=== PATIENT | male | born 1990 | race Caucasian/White ===

== ENCOUNTER 2018-07-08 18:17 | Emergency (ER) | payer MEDICAID, OTHER ==
[~2018-07-08] VITALS: Ht 154.9 cm; Wt 81.0 kg
[2018-07-08 18:22] VITALS: Ht 154.9 cm; Wt 81.0 kg
[2018-07-08] MEDS ORDERED: SOD CHLORIDE 0.9% 810 ML IV ONE (22:30)
[2018-07-09] MEDS ORDERED: CHLORPROMAZINE 25 MG TAB PO ONE
[2018-07-09] MEDS ORDERED: CHLO50TA PO (00:07)
[2018-07-09 00:48] VITALS: BP 114/77; PULSE 76; RESP 18
--- NOTE | 2018-07-10 04:12 | ERD ---
ER Documentation Chief Complaint Chief Complaint VOMTING X 3 DAYS; DIARRHEA X 1 DAY; DOWNS, DM, NON-VERBAL HPI Pt is a 28 year old non-verbal M with hx of down syndrome and diabetes types type 2 who presents to the ED with complaints of intractable hiccups x 2 days. Pt was seen at an outside clinic for same complaints where he was noted to have a blood sugar of 313 and subsequently seen here for further evaluation and treatment. Mother states that pt has been having nausea and vomiting for the past 3 days which improved status post a "shot" that was given by his PCP earlier this week. Mother states pt is able to eat and drink at home. Had 3 episodes of loose of stools yesterday, none today. No abdominal pain, fevers, chills, headaches or any other symptoms. Mother is here requesting treatment for his intractable hiccups. ROS All systems reviewed and are negative except as per history of present illness. Medications Home Meds Active Scripts Chlorpromazine Hcl* (Chlorpromazine Hcl*) 50 Mg Tablet, 50 MG PO TID for hiccups, #12 TAB Prov:ALISHA ESPINOZA PA-C 07/09/18 Allergies Allergies: Coded Allergies: No Known Allergy (Unverified , 07/08/18) PMhx/Soc History of Surgery: No Anesthesia Reaction: No Hx Neurological Disorder: No Hx Respiratory Disorders: No Hx Cardiac Disorders: No Hx Psychiatric Problems: No Hx Miscellaneous Medical Probl: Yes (DM,Down's Syndrome) Hx Alcohol Use: No Hx Substance Use: No Hx Tobacco Use: No Smoking Status: Never smoker FmHx Family History: No diabetes Physical Exam Vitals Vital Signs Date Temp Pulse Resp B/P (MAP) Pulse Ox O2 O2 Flow FiO2 Time Delivery Rate 07/09/18 97.9 76 18 114/77 97 Room Air 00:48 (89) 07/08/18 97.2 87 16 120/83 96 18:22 (95) Physical Exam Const: No acute distress Head: Atraumatic Eyes: Normal Conjunctiva. Upslanting palpebral fissures and epicanthal folds ENT: Normal External Ears, Nose and Mouth. Neck: Full range of motion. No meningismus. Resp: Clear to auscultation bilaterally Cardio: Regular rate and rhythm, no murmurs Abd: Soft, non tender, non distended. Normal bowel sounds Skin: No petechiae or rashes Back: No midline or flank tenderness Ext: No cyanosis, or edema Neur: Awake and alert Psych: Normal Mood and Affect Result Diagram: 07/08/18224907/08/182249 Results 24 hrs Laboratory Tests Test 07/08/18 00:19 07/08/18 22:50 Urine Color STRAW Urine Clarity CLEAR Urine pH 6.0 Urine Specific Reading 1.001 Urine Ketones 1+ mg/dL Urine Nitrite NEGATIVE mg/dL Urine Bilirubin NEGATIVE mg/dL Urine Urobilinogen NEGATIVE mg/dL Urine Leukocyte Esterase NEGATIVE Sandoval/ul Urine Hemoglobin NEGATIVE mg/dL Urine Glucose 3+ mg/dL Urine Total Protein NEGATIVE mg/dl White Blood Count 6.5 10^3/ul Red Blood Count 4.59 10^6/ul Hemoglobin 14.6 g/dl Hematocrit 40.3 % Mean Corpuscular Volume 87.8 fl Mean Corpuscular Hemoglobin 31.8 pg Mean Corpuscular Hemoglobin Concent 36.2 g/dl Red Cell Distribution Width 11.8 % Platelet Count 193 10^3/UL Mean Platelet Volume 11.4 fl Immature Granulocytes % 0.900 % Neutrophils % 57.2 % Lymphocytes % 32.5 % Monocytes % 8.2 % Eosinophils % 0.6 % Basophils % 0.6 % Nucleated Red Blood Cells % 0.0 /100WBC Immature Granulocytes # 0.060 10^3/ul Neutrophils # 3.7 10^3/ul Lymphocytes # 2.1 10^3/ul Monocytes # 0.5 10^3/ul Eosinophils # 0.0 10^3/ul Basophils # 0.0 10^3/ul Nucleated Red Blood Cells # 0.0 10^3/ul Sodium Level 135 mmol/L Potassium Level 3.3 mmol/L Chloride Level 98 mmol/L Carbon Dioxide Level 26 mmol/L Anion Gap 11 Blood Urea Nitrogen 5 mg/dl Creatinine 0.37 mg/dl Est Glomerular Filtrat Rate mL/min > 60 mL/min Glucose Level 256 mg/dl Calcium Level 9.0 mg/dl Total Bilirubin 0.3 mg/dl Direct Bilirubin 0.00 mg/dl Indirect Bilirubin 0.3 mg/dl Aspartate Amino Transf (AST/SGOT) 23 IU/L Alanine Aminotransferase (ALT/SGPT) 28 IU/L Alkaline Phosphatase 133 IU/L Total Protein 7.1 g/dl Albumin 4.0 g/dl Globulin 3.10 g/dl Albumin/Globulin Ratio 1.29 Current Medications Medications Dose Sig/Yogi Start Time Status Last (Trade) Ordered Route PRN Stop Time Admin Dose Reason Admin Sodium 810 ml @ ONCE ONCE 07/08/18 DC 07/08/18 Chloride 810 mls/hr IV 22:30 07/08/18 22:52 23:29 25 mg ONCE ONCE 07/09/18 DC 07/09/18 Chlorpromazin PO 00:00 07/09/18 00:22 e 00:02 (Thorazine) Procedures/MDM EMERGENT LABS AND DIAGNOSTIC STUDIES: Lab Results above were reviewed and interpreted by me as below. CBC: no e/o of systemic infection or severe anemia CMP: 256 glucose without e/o severe acidosis, alkalosis, renal failure, diabetic ketoacidosis, liver disease Urine: 1+ ketones, 3+ glucosuria without hematuria or pyuria Nursing Notes Reviewed. Previous Medical Records requested via the Electronic Health Record. EMERGENCY DEPARTMENT COURSE / MEDICAL DECISION MAKING: This is a 28 year old M with hx of Down Syndrome and diabetes mellitus type 2 who presents to the ED for intractable hiccups most likely related to his diabet es. He is afebrile with stable vital signs. No hypoxia or respiratory distress. I have low suspicion for vascular or infectious cause of his hiccups. CBC unremarkable. CMP with elevated glucose of 256 without any evidence of DKA or hyperosmolar syndrome. Pt was treated with 1 liter of IVFs and IM Chlorpromazine here. He was discharged home with a prescription for same. I recommended pt follow up with his PCP in 2 days for further management and adjustment of his diabetes medications. Strict return precautions given. Prior to discharge, patients vital signs have been reviewed PRESCRIPTIONS: Chlorpromazine SPECIALIST FOLLOW UP RECOMMENDED: None Patient has been advised to follow up with primary care in 1-2 days. Patient's blood pressure was elevated (>120/80) but appears stable without evidence of hypertension emergency or urgency. The patient was counseled about the risks of hypertension and urged to pursue outpatient monitoring and therapy within a week with their primary care physician Departure Diagnosis: Primary Impression: Intractable hiccoughs Additional Impression: Diabetes mellitus Condition: Stable Patient Instructions: Hiccups Referrals: [facility] Additional Instructions: Please see regular doctor in 2 days. He work appears negative for any emergent cause of her hiccups. Return to the ED for any new or worsening symptoms. ALISHA ESPINOZA PA-C Jul 10, 2018 03:51
== END 2018-07-09 00:49 | disposition home or self-care (01) ==
LOC: FTE 18:17
DX: R06.6 Hiccough (principal); E11.9 Type 2 diabetes mellitus without complications
CPT/HCPCS: 80053; 81003; 85025; J7030; Z7502; Z7610

== ENCOUNTER → 2018-11-11 | Emergency (ER) | payer OTHER ==
[~2018-11-11] VITALS: Ht 160 cm; Wt 78.0 kg
[~2018-11-11] MED LIST: AMOX1TAB10 PO; AMOXICILLIN/CLAV 875 MG TAB PO ONE; CHLO50TA PO; IBUP-1542 PO; IBUPROFEN 600 MG TAB PO ONE; PENI500T PO; PENICILLIN V K 250 MG TAB PO ONE
[2018-11-11 00:52] VITALS: BP 120/78; PULSE 88; RESP 19; Ht 160 cm; Wt 78.0 kg
--- NOTE | 2018-11-11 02:00 | ERD ---
ER Documentation Chief Complaint Chief Complaint bib mother for right lower dental infection due to dental cap falling out HPI Patient is a 28-year-old male, past medical history of Down syndrome, type 2 diabetes, who presents to the ER for concerns of dental pain and right cheek swelling x1 day. Mother states patient is nonverbal. She states when she looked in the patient's mouth today she noticed that patient has a cracked tooth and it looks as if it is infected. Patient has no fevers or chills. Patient has no drooling, trismus or hyper extension of his neck. Mother states patient has been seeing a dentist recently due to jaw clenching. Patient does have an appointment with his dentist on 08-23-18. Patient takes Metformin daily per mother. ROS All systems reviewed and are negative except as per history of present illness. Medications Home Meds Active Scripts Amoxicillin/Potassium Clav (Amox-Clav 875-125 mg Tablet) 875-125 mg Tab, 1 TAB PO BID for 7 Days, #14 TAB Prov:TERRENCE CHAO PA-C 11/11/18 Ibuprofen* (Motrin*) 600 Mg Tab, 600 MG PO Q6, #30 TAB Prov:TERRENCE CHAO PA-C 11/11/18 Chlorpromazine Hcl* (Chlorpromazine Hcl*) 50 Mg Tablet, 50 MG PO TID for hiccups, #12 TAB Prov:ALISHA ESPINOZA PA-C 07/09/18 Discontinued Scripts Penicillin V Potassium* (Penicillin V K*) 500 Mg Tab, 500 MG PO QID for 10 Days, TAB Prov:TERRENCE CHAO PA-C 11/11/18 Allergies Allergies: Coded Allergies: No Known Allergy (Unverified , 07/08/18) PMhx/Soc Medical and Surgical Hx: pt denies Surgical Hx History of Surgery: No Anesthesia Reaction: No Hx Neurological Disorder: No Hx Respiratory Disorders: No Hx Cardiac Disorders: No Hx Psychiatric Problems: No Hx Miscellaneous Medical Probl: Yes (Down's Syndrome) Hx Alcohol Use: No Hx Substance Use: No Hx Tobacco Use: No Smoking Status: Never smoker FmHx Family History: No diabetes Physical Exam Vitals Vital Signs Date Temp Pulse Resp B/P (MAP) Pulse Ox O2 O2 Flow FiO2 Time Delivery Rate 7/5/19 98.6 88 19 120/78 100 00:52 (92) Physical Exam GENERAL: Well-developed, well-nourished male. Appears in no acute distress. Nonverbal. HEAD: Normocephalic, atraumatic. EYES: Pupils are equally reactive bilaterally. EOMs grossly intact. No conjunctival erythema. ENT: Moist mucous membranes. No uvula deviation. No kissing tonsils. Poor dentition. First right lower molar noted to be fractured partially. Pulp visualization. No active bleeding or drainage. Patient has enlarged lips , chin, lower jaw. Per patient's mother and sibling who is present, this is a chronic finding for the patient. Swelling noted to the right lower jaw. No drooling. No trismus. NECK: Supple. No meningismus. Normal range of motion of the neck. LUNG: Clear to auscultation bilaterally. No rhonchi, wheezing, rales or coarse breath sounds. HEART: Regular rate and rhythm. No murmurs, rubs or gallops. EXTREMITIES: Equal pulses bilaterally. No peripheral clubbing, cyanosis or edema. No unilateral leg swelling. NEUROLOGIC: Alert and oriented. Moving all four extremities without any difficulty. Normal speech. Steady gait. SKIN: Normal color. Warm and dry. No rashes or lesions. Results 24 hrs Current Medications Medications Dose Sig/Yogi Start Time Status Last (Trade) Ordered Route PRN Stop Time Admin Dose Reason Admin Penicillin 500 mg ONCE ONCE 11/11/18 DC V Potassium PO 01:30 11/11/18 (Penicillin 01:51 V K) Ibuprofen 600 mg ONCE ONCE 11/11/18 DC (Motrin) PO 01:30 11/11/18 01:31 875 mg ONCE ONCE 11/11/18 Amoxicillin/ PO 02:00 11/11/18 Clavulanate 02:01 Potassium (Augmentin) Procedures/MDM MEDICAL DECISION MAKING: This is a 28-year-old male with past medical history of type 2 diabetes and Down syndrome, presents the ER for concerns of dental pain and right cheek swelling x1 day. Vital signs were reviewed. Patient was afebrile. Patient was not hypoxic. The patient did not have trismus, muffled voice, uvula deviation, unilateral tonsillar swelling, or drooling. No signs of neck swelling or hyperextension of the neck noted. Overall patient does have poor dentition. Patient's tooth was noted to be fractured. Patient was given first dose of Augmentin here in the ER and will be discharged home with prescription for Augmentin. [facility] dental clinic information was provided mother was advised to have patient follow-up with a dentist in the next 1 to 2 days. At this time, the patient presentation most consistent with dental pain. Low suspicion for epiglottitis, strep pharyngitis, peritonsillar abscess, retropharyngeal abscess, Joaquim's angina,, bleeding dental socket, periodontal abscess, ulcerative gingivitis, dental trauma. PRESCRIPTIONS: Ibuprofen, Augmentin DISCHARGE: At this time, patient is stable for discharge and outpatient management. I have instructed the patient to see a dentist today or tomorrow. I have instructed the patient to promptly return to the ER at any time for any new or worsening symptoms including increased pain, fever, swelling, neck swelling, neck stiffness, drooling or difficulty breathing. The patient and/or family expressed understanding of and agreement with this plan. All questions were answered. Home care instructions were provided. Disclaimer: Inadvertent spelling and grammatical errors are likely due to EHR/dictation software use and do not reflect on the overall quality of patient care. Also, please note that the electronic time recorded on this note does not necessarily reflect the actual time of the patient encounter. Departure Diagnosis: Primary Impression: Pain, dental Condition: Fair Patient Instructions: Dental Pain Referrals: [facility] YOU HAVE RECEIVED A MEDICAL SCREENING EXAM AND THE RESULTS INDICATE THAT YOU DO NOT HAVE A CONDITION THAT REQUIRES URGENT TREATMENT IN THE EMERGENCY DEPARTMENT. FURTHER EVALUATION AND TREATMENT OF YOUR CONDITION CAN WAIT UNTIL YOU ARE SEEN IN YOUR DOCTORS OFFICE WITHIN THE NEXT 1-2 DAYS. IT IS YOUR RESPONSIBILITY TO MAKE AN APPOINTMENT FOR FOLOW-UP CARE. IF YOU HAVE A PRIMARY DOCTOR --you should call your primary doctor and schedule an appointment IF YOU DO NOT HAVE A PRIMARY DOCTOR YOU CAN CALL OUR PHYSICIAN REFERRAL HOTLINE AT IF YOU CAN NOT AFFORD TO SEE A PHYSICIAN YOU CAN CHOSE FROM THE FOLLOWING [facility] CLINICS [facility] [address] [facility] [address] [facility] [facility] [address] [facility] [address] [facility] [address] [facility] [address] [facility]. [facility] YOU HAVE RECEIVED A MEDICAL SCREENING EXAM AND THE RESULTS INDICATE THAT YOU DO NOT HAVE A CONDITION THAT REQUIRES URGENT TREATMENT IN THE EMERGENCY DEPARTMENT. FURTHER EVALUATION AND TREATMENT OF YOUR CONDITION CAN WAIT UNTIL YOU ARE SEEN IN YOUR DOCTORS OFFICE WITHIN THE NEXT 1-2 DAYS. IT IS YOUR RESPONSIBILITY TO MAKE AN APPOINTMENT FOR FOLOW-UP CARE. IF YOU HAVE A PRIMARY DOCTOR --you should call your primary doctor and schedule and appointment IF YOU DO NOT HAVE A PRIMARY DOCTOR YOU CAN CALL OUR PHYSICIAN REFERRAL HOTLINE AT . IF YOU CAN NOT AFFORD TO SEE A PHYSICIAN YOU CAN CHOSE FROM THE FOLLOWING [facility] INSTITUTIONS: [facility] [address] [place] [address] [facility] [address] [place] [address] [facility] [address] [place] [address] [facility] DENTIST ([facility] walk in clinic) Additional Instructions: Call your DENTIST TOMORROW for an appointment during the next 1-2 days.See the doctor sooner or return here if your condition worsens before your appointment time. TERRENCE CHAO PA-C Nov 11, 2018 02:00
== END | disposition home or self-care (01) ==
LOC: FTE 00:46
DX: K08.89 Other specified disorders of teeth and supporting structures (principal); E11.9 Type 2 diabetes mellitus without complications
CPT/HCPCS: Z7610 ×3; 99283